=== PATIENT | female | born 1985 | race Hispanic/Latino ===

== ENCOUNTER 2017-12-16 21:26 | Emergency (ER) | payer BC, MEDICAID, OTHER ==
[2017-12-16] MEDS ORDERED: ACETAMINOPHEN 325 MG TAB ONE (21:45)
== END 2017-12-16 23:07 | disposition home or self-care (01) ==
LOC: EDH 21:26
DX: S60.211A Contusion of right wrist, initial encounter (principal); S40.012A Contusion of left shoulder, initial encounter; S70.02XA Contusion of left hip, initial encounter; V49.49XA Driver injured in collision with other motor vehicles in traffic accident, initial encounter; Y93.89 Activity, other specified; Y92.89 Other specified places as the place of occurrence of the external cause; Y99.8 Other external cause status
CPT/HCPCS: 71045; 73030; 73110; 73502; 81025; 93005